=== PATIENT | male | born 1960 | race Two or more races ===

== ENCOUNTER 2023-04-24 18:35 | Inpatient (IN) | payer OTHER ==
[~2023-04-24] VITALS: Ht 144.8 cm; Wt 82.6 kg
[2023-04-24] MEDS ORDERED: AMLODIPINE-OLM1 EAC3 PO (19:21)
[2023-04-24] MEDS ORDERED: LOSARTAN POTASS50 MG PO (19:21)
[2023-04-24] MEDS ORDERED: OMEGA-31000 MG PO (19:22)
[2023-04-24] MEDS ORDERED: ATORVASTATIN CA10 MG PO (19:22)
[2023-04-24] MEDS ORDERED: ULORIC40 MG (19:22)
[2023-04-24 20:24] LABS: HEMATOCRIT 29.1 % (39.0-48.0); HEMOGLOBIN 10.2 g/dL (13-16.00); MEAN CELL VOLUME 100.3 fL (80.0-100.00); MEAN CORPUSCULAR HEMOGLOBIN 35.1 pg (27.00-32.0); PLATELET COUNT 146 K/uL (150-450)
[2023-04-24 20:42] LABS: INR 1.13; PROTHROMBIN TIME 11.8 SECONDS (9.0-11.5)
[2023-04-24 20:49] LABS: ALBUMIN 3.3 gm/dL (3.4-5.0); BILIRUBIN TOTAL 5.64 mg/dL (0.3-1.2); CALCIUM 8.5 mg/dL (8.5-10.1); CREATININE SERUM 2.28 mg/dL (0.70-1.30); GFR 29.15; GLOBULINA 4.9 G/DL (2.4-3.5); POTASSIUM 3.73 mEq/L (3.5-5.1); TOTAL PROTEIN 8.2 gm/dL (6.4-8.2)
[2023-04-24 21:44] LABS: ALBUMIN 3.4 gm/dL (3.4-5.0); BILIRUBIN TOTAL 5.65 mg/dL (0.3-1.2); BILIRUBIN,CONJUGATED 4.33 mg/dL (0.0-0.2); BILIRUBIN,UNCONJUGATED 1.32 mg/dL (0.0-0.6); TOTAL PROTEIN 8.2 gm/dL (6.4-8.2)
[2023-04-25 06:19] LABS: MEAN CELL VOLUME 99.7 fL (80.0-100.00); PLATELET COUNT 132 K/uL (150-450); RED BLOOD COUNT 2.33 M/uL (4.00-6.00)
[2023-04-25 07:03] LABS: BILIRUBIN TOTAL 4.29 mg/dL (0.3-1.2); CALCIUM 7.8 mg/dL (8.5-10.1); CREATININE SERUM 2.03 mg/dL (0.70-1.30); GFR 33.34; GLOBULINA 4.3 G/DL (2.4-3.5); POTASSIUM 3.35 mEq/L (3.5-5.1); TOTAL PROTEIN 7.3 gm/dL (6.4-8.2)
[2023-04-25 07:54] LABS: HEMATOCRIT 23.3 % (39.0-48.0); MEAN CORPUSCULAR HEMOGLOBIN 34.7 pg (27.00-32.0)
[2023-04-25 07:55] LABS: HEMOGLOBIN 8.1 g/dL (13-16.00)
[2023-04-25 15:18] LABS: ALBUMIN 2.8 gm/dL (3.4-5.0); BILIRUBIN TOTAL 3.23 mg/dL (0.3-1.2); BILIRUBIN,CONJUGATED 2.71 mg/dL (0.0-0.2); BILIRUBIN,UNCONJUGATED 0.52 mg/dL (0.0-0.6); CHOL HDL RATIO 12.3 (0-5.0); INR 1.13; MAGNESIUM 1.6 mg/dL (1.8-2.4); PARTIAL THROMBOPLASTIN TIME 22.7 SECONDS (22.0-34.0); PROTHROMBIN TIME 11.8 SECONDS (9.0-11.5); TOTAL PROTEIN 6.8 gm/dL (6.4-8.2)
[2023-04-26 09:33] LABS: HEMATOCRIT 27.5 % (39.0-48.0); HEMOGLOBIN 9.6 g/dL (13-16.00); MEAN CELL VOLUME 94.8 fL (80.0-100.00); MEAN CORPUSCULAR HEMOGLOBIN 32.9 pg (27.00-32.0); MEAN CORPUSCULAR HGB CONC 34.7 g/dl (32.0-36.0); PLATELET COUNT 156 K/uL (150-450)
[2023-04-26 09:34] LABS: RED CELL DISTRIBUTION WIDTH 19.4 % (11.5-14.5)
[2023-04-26 09:49] LABS: ALBUMIN 2.9 gm/dL (3.4-5.0); BILIRUBIN TOTAL 3.18 mg/dL (0.3-1.2); CREATININE SERUM 1.33 mg/dL (0.70-1.30); GFR 54.31; GLOBULINA 4.3 G/DL (2.4-3.5); POTASSIUM 3.36 mEq/L (3.5-5.1); TOTAL PROTEIN 7.2 gm/dL (6.4-8.2)
[2023-04-27 08:45] LABS: URINE APPEARANCE Clear; URINE BILIRRUBIN Negative (NEGATIVE); URINE BLOOD NHT; URINE COLOR Yellow; URINE GLUCOSE Negative (NEGATIVE); URINE LEUKOCYTE Moderate; URINE NITRATE Negative; URINE PROTEIN Trace (NEGATIVE)
[2023-04-27 08:48] LABS: URINE BACTERIA 493.7 uL (0.0-1933); URINE EPITHELIAL CELLS 10.3 uL (0.0-38.8); URINE WBC 99.5 uL (0.0-23.2)
[2023-04-28 06:36] LABS: HEMATOCRIT 27.9 % (39.0-48.0); HEMOGLOBIN 9.7 g/dL (13-16.00); MEAN CELL VOLUME 94.4 fL (80.0-100.00); MEAN CORPUSCULAR HEMOGLOBIN 32.6 pg (27.00-32.0); MEAN CORPUSCULAR HGB CONC 34.6 g/dl (32.0-36.0); PLATELET COUNT 220 K/uL (150-450); RED BLOOD COUNT 2.96 M/uL (4.00-6.00); RED CELL DISTRIBUTION WIDTH 19.5 % (11.5-14.5)
[2023-04-28 06:51] LABS: CALCIUM 8.2 mg/dL (8.5-10.1); CREATININE SERUM 0.91 mg/dL (0.70-1.30); GFR 84.15; POTASSIUM 3.57 mEq/L (3.5-5.1)
[2023-04-29 10:00] LABS: HEMOGLOBIN 9.7 g/dL (13-16.00); MEAN CELL VOLUME 94.4 fL (80.0-100.00); MEAN CORPUSCULAR HEMOGLOBIN 32.7 pg (27.00-32.0); MEAN CORPUSCULAR HGB CONC 34.7 g/dl (32.0-36.0); PLATELET COUNT 248 K/uL (150-450); RED BLOOD COUNT 2.97 M/uL (4.00-6.00); RED CELL DISTRIBUTION WIDTH 19.1 % (11.5-14.5)
[2023-04-30 05:43] LABS: hav igm Negative (Negative); hcv Non Reactive (Non Reactive); hep b c Negative (Negative)
== END 2023-04-29 19:04 | disposition home or self-care (01) | DRG 378 ==
LOC: ER 18:37 → MEDI 04-25 11:55 → ICU-2 04-25 11:55 → MEDI 04-26 15:19
PROVIDERS: General Practice; Internal Medicine; Internal Medicine Infectious Disease; ADMIT Specialist; ATTEND Specialist
PROC: BW21YZZ Computerized Tomography (CT Scan) of Abdomen and Pelvis using Other Contrast (ICD-10-PCS; 2023-04-24)
PROC: 4A12X4Z Monitoring of Cardiac Electrical Activity, External Approach (ICD-10-PCS; 2023-04-26)
PROC: 0DJD8ZZ Inspection of Lower Intestinal Tract, Via Natural or Artificial Opening Endoscopic (ICD-10-PCS; principal; 2023-04-28)
DX: K62.5 Hemorrhage of anus and rectum (principal); N17.9 Acute kidney failure, unspecified; D64.9 Anemia, unspecified; R41.82 Altered mental status, unspecified; K70.10 Alcoholic hepatitis without ascites